=== PATIENT | female | born 1980 | race Hispanic/Latino ===

== ENCOUNTER 2023-07-27 15:01 | Inpatient (IN) | payer OTHER ==
[~2023-07-27 15:01] MED LIST: Iopamidol-370 76% 500 ML MDV (1 ML CHARGE) ONE
[2023-07-27] MEDS ORDERED: Cefepime 2 GM VIAL ONE (16:11)
[2023-07-27] MEDS ORDERED: Vancomycin 1 GM/200 ML (FROZEN) BAG ONE (16:44)
[2023-07-27] MEDS ORDERED: metroNIDAZOLE 500 MG/100 ML BAG ONE (16:44)
[2023-07-27 17:16] LABS: Hematocrit 25.4 % (36.0-47.0); Hemoglobin 9.6 g/dL (12.0-16.0); Manual Diff?? YES; Mean Corpuscular HGB CONC 37.8 g/dL (32.0-36.0); Mean Corpuscular Hemoglobin 31.3 pg (27.0-31.0); Mean Corpuscular Volume 82.7 fl (78.0-98.0); Mean Platelet Volume 9.5 fL (7.4-10.4); Platelet Count 160 10x3/uL (130-400); RBC Distribution Width 12.4 % (11.5-14.5); Red Blood Cell (RBC) Count 3.07 mill/uL (4.20-5.40); White Blood Cell (WBC) Count 1.6 10x3/uL (4.8-10.8)
[2023-07-27 17:17] LABS: Delete Auto Diff?? YES
[2023-07-27 17:29] LABS: Prothrombin Time 13.9 sec (12.0-14.7)
[2023-07-27 17:30] LABS: PTT 27.3 sec (22.9-36.1)
[2023-07-27 17:39] LABS: Anisocytosis SLIGHT = 6-15 cells HPF (0-5); Band 43 % (5-11); CellaVision Operator ID lab.dlt; Hypochromia SLIGHT = 6-15 cells HPF (0-5); Large Platelets 7.8 % (0-5); Lymphocytes 3 % (21-51); Monocytes 14 % (0-10); Neutrophil 41 % (42-75); Platelet Adequacy Comment Platelets Normal; Polychromasia SLIGHT = 2-3 cells HPF (0-2); Total Cell Count 116
[2023-07-27 17:42] LABS: Troponin I 0.035 ng/mL (< 0.028)
[2023-07-27 17:45] LABS: ALT (SGPT) 11 U/L (8-55); AST (SGOT) 11 U/L (5-34); Albumin 2.6 g/dL (3.5-5.0); Alkaline Phosphatase 63 U/L (40-110); Anion Gap 15 mmol/L (10-20); BUN (Urea Nitrogen) 23 mg/dL (7.0-18.7); CK (CPK) 44 U/L (29-168); Calc. Creatinine Clearance 0 mL/min (70-130); Carbon Dioxide 25 mmol/L (22-29); Chloride 81 mmol/L (98-107); Estimated GFR 114; Globulin 1.8 g/dL (2.4-3.5); Glucose 107 mg/dL (70-105); Protein, Total 4.4 g/dL (6.0-8.3)
[2023-07-27 17:48] LABS: Potassium 1.8 mmol/L (3.5-5.1); Sodium 119 mmol/L (136-145)
[2023-07-27] MEDS ORDERED: Potassium Chloride 20 MEQ TAB ONE (19:03)
[2023-07-27] MEDS ORDERED: Potassium Chloride 40 MEQ in Sodium Chloride 0.9% 250 ML 250 ML IVPB SCH (19:15)
[2023-07-27] MEDS ORDERED: Potassium Chloride 40 MEQ in Premix Bag 1 BAG IVPB SCH (19:30)
[2023-07-27] MEDS ORDERED: Albumin 25% 25 GM/100 ML BOT IVPB SCH (19:45)
[2023-07-27] MEDS ORDERED: NOREPINEPHRINE 8 MG/250 ML-D5W 250 ML ONE (20:00)
[2023-07-27 20:09] LABS: SARS-CoV-2 NAA Rapid Test Not Detected (NotDetected)
[2023-07-27 20:10] LABS: Bacteria/HPF None Seen HPF (None Seen); Bilirubin Negative (Negative); Blood, Urine Negative (Negative); CAUTI Indications for Culture Alt mental st,lethar; Clarity Clear (Clear); Glucose, Urine (Dipstick) Normal (Negative); Ketone, Urine Negative (Negative); Leukocyte Negative Leu/uL (Negative); Nitrite Negative (Negative); Protein, Urine (Dipstick) 20 mg/dL (Neg-Trace); RBC/HPF 0-3 HPF (0-3); Specific Gravity, Urine 1.029 (1.002-1.036); Squamous Epithelial 0-3 HPF (0-3); Urobilinogen Normal mg/dL (Less than 2); WBC/HPF 0-3 HPF (0-3); pH, Urine 6.5 (5.0-9.0)
[2023-07-27] MEDS ORDERED: Acetaminophen 325 MG TAB PO PRN (20:19)
[2023-07-27] MEDS ORDERED: Acetaminophen 650 MG Suppository PR PRN (20:19)
[2023-07-27 20:25] LABS: Urine Culture Reflex No No
[2023-07-27] MEDS ORDERED: Pharmacy to Dose : VANC/ABX'S IVPB PRN (20:25)
[2023-07-27] MEDS: NOREPINEPHRINE 8 MG/250 ML-D5W 250 ML IVPB SCH (20:32)
[2023-07-27] MEDS ORDERED: Cefepime 2 GM in Sodium Chloride 0.9% 100 ML IVPB SCH (21:00)
[2023-07-27] MEDS ORDERED: Vancomycin HCl 1.5 GM in Sodium Chloride 0.9% 250 ML 300 ML IVPB SCH (21:00)
[2023-07-27 21:09] LABS: Hematocrit 25.7 % (36.0-47.0); Hemoglobin 9.5 g/dL (12.0-16.0); Mean Corpuscular Hemoglobin 31.7 pg (27.0-31.0); Mean Platelet Volume 9.5 fL (7.4-10.4); Platelet Count 137 10x3/uL (130-400); RBC Distribution Width 12.7 % (11.5-14.5); White Blood Cell (WBC) Count 2.4 10x3/uL (4.8-10.8)
[2023-07-27 21:17] LABS: Delete Auto Diff?? YES; Manual Diff?? YES
[2023-07-27 21:29] LABS: Actual Bicarbonate (HCO3v) 22.7 mEq/L (22-28); Base Excess -0.9 mEq/L (-2.0 to +3.0); Chloride (VBG) 86 mmol/L (98-106); Hematocrit-VBG 31 % (36.0-47.0); Hemoglobin (Hb) 10.5 g/dL (11.7-15.5); pH (venous) 7.447 (7.32-7.43)
[2023-07-27 21:30] LABS: Anion Gap 17 mmol/L (10-20); BUN (Urea Nitrogen) 21 mg/dL (7.0-18.7); Calc. Creatinine Clearance 65 mL/min (70-130); Calcium 7.3 mg/dL (7.8-10.44); Carbon Dioxide 20 mmol/L (22-29); Chloride 85 mmol/L (98-107); Estimated GFR 114; Glucose 123 mg/dL (70-105); Magnesium 1.4 mg/dL (1.6-2.6); Sodium 120 mmol/L (136-145)
[2023-07-27] MEDS ORDERED: Dextrose 5% in Water 1,000 ML IV PRN (21:34)
[2023-07-27] MEDS ORDERED: Glucagon 1 MG/ML KIT IM PRN (21:34)
[2023-07-27] MEDS ORDERED: Dextrose 50% Abboject 50 ML SYRINGE SLOW IVP PRN (21:34)
[2023-07-27 21:35] LABS: Potassium 1.5 mmol/L (3.5-5.1)
[2023-07-27] MEDS ORDERED: Electrolyte Replacement Protocol 1 EACH FS SCH (21:35)
[2023-07-27] MEDS: Ondansetron PF 4 MG/2 ML Vial IVP PRN (21:41)
[2023-07-27 21:43] LABS: Lactic Acid 4.8 mmol/L (0.5-2.2)
[2023-07-27 21:55] LABS: Legionella Urinary Ag Negative (Negative); Strep pneumo Urine Ag NEGATIVE (NEGATIVE)
[2023-07-27 21:57] LABS: Anisocytosis SLIGHT = 6-15 cells HPF (0-5); Band 34 % (5-11); Burr Cells SLIGHT = 2-5 cells HPF (0-1); CellaVision Operator ID LAB.JMM; Large Platelets 3.7 % (0-5); Lymphocytes 6 % (21-51); Metamyelocyte 6 % (0-0); Monocytes 3 % (0-10); Myelocyte 1 % (0-0); Neutrophil 51 % (42-75); Platelet Adequacy Comment Platelets Normal; Polychromasia SLIGHT = 2-3 cells HPF (0-2); RBC Morphology 2; Total Cell Count 108; Toxic Granulation MODERATE
[2023-07-27 22:01] LABS: Mean Corpuscular Volume 85.7 fl (78.0-98.0)
[2023-07-27] MEDS: Vasopressin 20 UNITS in Sodium Chloride 0.9% 50 ML IV SCH (22:28)
[2023-07-27] MEDS: Meropenem 1 GM in Sodium Chloride 0.9% 100 ML IVPB SCH (22:28)
[2023-07-27] MEDS ORDERED: Sodium Chloride 0.9% 1,000 ML IV SCH (22:30)
[2023-07-27] MEDS ORDERED: Potassium Chloride 20 MEQ in Premix Bag 1 BAG IVPB SCH (22:30)
[2023-07-27] MEDS ORDERED: Magnesium Sulfate In Water 4 GM in Premix Bag 1 BAG IVPB SCH (22:30)
[2023-07-27] MEDS: Hydrocortisone Sod Succ/PF 100 mg/2 ml Vial IVP SCH (22:48)
[2023-07-27 23:29] VITALS: BP 96/66
[2023-07-27 23:41] LABS: Anion Gap 15 mmol/L (10-20); BUN (Urea Nitrogen) 20 mg/dL (7.0-18.7); Calc. Creatinine Clearance 67 mL/min (70-130); Calcium 7.5 mg/dL (7.8-10.44); Carbon Dioxide 23 mmol/L (22-29); Chloride 86 mmol/L (98-107); Estimated GFR 115; Glucose 125 mg/dL (70-105); Lactic Acid 4.2 mmol/L (0.5-2.2); Sodium 122 mmol/L (136-145)
[2023-07-27 23:47] LABS: Troponin I 0.036 ng/mL (< 0.028)
[2023-07-27 23:48] LABS: Potassium 1.9 mmol/L (3.5-5.1)
[2023-07-28] MEDS: NOREPINEPHRINE 8 MG/250 ML-D5W 250 ML IVPB SCH ×3 (01:41→11:11)
[2023-07-28] MEDS: Potassium Chloride 20 MEQ in Premix Bag 1 BAG IVPB SCH ×4 (01:44→06:36)
[2023-07-28 04:52] LABS: Hematocrit 23.9 % (36.0-47.0); Hemoglobin 8.4 g/dL (12.0-16.0); Mean Corpuscular HGB CONC 35.1 g/dL (32.0-36.0); Mean Corpuscular Hemoglobin 31.1 pg (27.0-31.0); Mean Platelet Volume 9.9 fL (7.4-10.4); Platelet Count 121 10x3/uL (130-400); RBC Distribution Width 12.5 % (11.5-14.5); White Blood Cell (WBC) Count 3.3 10x3/uL (4.8-10.8)
[2023-07-28] MEDS ORDERED: Vancomycin HCl 500 MG in Sodium Chloride 0.9% 100 ML IVPB SCH (05:00)
[2023-07-28 05:05] LABS: Delete Auto Diff?? YES; Manual Diff?? YES
[2023-07-28 05:20] LABS: Anion Gap 13 mmol/L (10-20); BUN (Urea Nitrogen) 17 mg/dL (7.0-18.7); Calc. Creatinine Clearance 83 mL/min (70-130); Calcium 7.4 mg/dL (7.8-10.44); Carbon Dioxide 24 mmol/L (22-29); Chloride 88 mmol/L (98-107); Estimated GFR 117; Glucose 146 mg/dL (70-105); Magnesium 3.1 mg/dL (1.6-2.6); Sodium 123 mmol/L (136-145)
[2023-07-28] MEDS: Meropenem 1 GM in Sodium Chloride 0.9% 100 ML IVPB SCH (05:25)
[2023-07-28] MEDS: Albumin 25% 25 GM/100 ML BOT IVPB SCH ×2 (05:25→11:12)
[2023-07-28] MEDS: Hydrocortisone Sod Succ/PF 100 mg/2 ml Vial IVP SCH (05:26)
[2023-07-28] MEDS: Vasopressin 20 UNITS in Sodium Chloride 0.9% 50 ML IV SCH ×2 (05:27→09:40)
[2023-07-28 05:29] LABS: Lactic Acid 4.2 mmol/L (0.5-2.2); Phosphorus 1.4 mg/dL (2.3-4.7); Potassium 2.3 mmol/L (3.5-5.1)
[2023-07-28 05:35] LABS: Mean Corpuscular Volume 88.5 fl (78.0-98.0)
[2023-07-28] MEDS: Ondansetron PF 4 MG/2 ML Vial IVP PRN (05:59)
[2023-07-28] MEDS ORDERED: Potassium Phosphate 22 MMOL in Sodium Chloride 0.9% 250 ML 250 ML IVPB SCH (06:15)
[2023-07-28 08:14] VITALS: BMI 15.3
[2023-07-28 08:17] LABS: Anion Gap 15 mmol/L (10-20); BUN (Urea Nitrogen) 15 mg/dL (7.0-18.7); Calc. Creatinine Clearance 89 mL/min (70-130); Calcium 7.4 mg/dL (7.8-10.44); Carbon Dioxide 23 mmol/L (22-29); Chloride 91 mmol/L (98-107); Estimated GFR 119; Glucose 149 mg/dL (70-105); Potassium 4.6 mmol/L (3.5-5.1); Sodium 124 mmol/L (136-145)
[2023-07-28 08:26] LABS: Lactic Acid 4.4 mmol/L (0.5-2.2)
[2023-07-28] MEDS ORDERED: Potassium Chloride 20 MEQ in Premix Bag 1 BAG IVPB SCH ×2 (09:00)
[2023-07-28] MEDS ORDERED: Pantoprazole 40 MG VIAL IVP SCH (09:00)
[2023-07-28] MEDS ORDERED: Magnesium Sulfate In Water 4 GM in Premix Bag 1 BAG IVPB SCH (09:15)
[2023-07-28] MEDS ORDERED: Magnesium Sulfate 4 GM in Sodium Chloride 0.9% 250 ML 250 ML IVPB SCH (09:15)
[2023-07-28] MEDS ORDERED: Aluminum & Magnesium Hydroxide 60 ML, Lidocaine 2% Viscous Solution 30 ML, diphenhydrAM... SSW PRN (09:55)
[2023-07-28 10:15] VITALS: TEMP 98.1
[2023-07-28] MEDS ORDERED: Ketorolac Tromethamine 30 MG/ML VIAL IVP SCH (10:40)
[2023-07-28] MEDS ORDERED: Morphine 4 MG/ML VIAL SLOW IVP PRN (14:25)
[2023-07-28] MEDS ORDERED: Lorazepam 2 MG/ML VIAL SLOW IVP PRN (14:27)
[2023-07-28] MEDS ORDERED: Morphine 4 MG/ML VIAL ONE (14:27)
[2023-07-28] MEDS ORDERED: Lorazepam 2 MG/ML VIAL ONE (14:27)
== END 2023-07-28 14:31 | disposition hospice, inpatient (51) | DRG 871 ==
LOC: ERS 15:01 → CCU 18:20
PROVIDERS: ADMIT Hospitalist; ATTEND Internal Medicine
PROC: 06HY33Z Insertion of Infusion Device into Lower Vein, Percutaneous Approach (ICD-10-PCS; principal; 2023-07-27)
PROC: 30233J1 Transfusion of Nonautologous Serum Albumin into Peripheral Vein, Percutaneous Approach (ICD-10-PCS; 2023-07-27)
PROC: 3E033XZ Introduction of Vasopressor into Peripheral Vein, Percutaneous Approach (ICD-10-PCS; 2023-07-27)
PROC: 3E03329 Introduction of Other Anti-infective into Peripheral Vein, Percutaneous Approach (ICD-10-PCS; 2023-07-27)
DX: A41.9 Sepsis, unspecified organism (principal); E43 Unspecified severe protein-calorie malnutrition; I26.99 Other pulmonary embolism without acute cor pulmonale; R65.21 Severe sepsis with septic shock; R57.1 Hypovolemic shock; J69.0 Pneumonitis due to inhalation of food and vomit; E87.1 Hypo-osmolality and hyponatremia; R64 Cachexia; Z68.1 Body mass index [BMI] 19.9 or less, adult; J90 Pleural effusion, not elsewhere classified; K55.9 Vascular disorder of intestine, unspecified; N13.30 Unspecified hydronephrosis; R18.8 Other ascites; N12 Tubulo-interstitial nephritis, not specified as acute or chronic; I95.9 Hypotension, unspecified; E87.6 Hypokalemia; E86.1 Hypovolemia; E86.0 Dehydration; D64.9 Anemia, unspecified; Z20.822 Contact with and (suspected) exposure to COVID-19
CPT/HCPCS: 36416; 71045; 71260; 71275; 74177; 80048; 80053; 81001; 82533; 82550; 82805; 83605; 83735; 83930; 83935; 84100; 84145; 84300; 84443; 84484; 85025; 85610; 85730; 86850; 86900; 86901; 87040; 87086; 87449; 87899; 93005; 93010; 93970; C9113; J0692; J1650; J1720; J1885; J2185; J2270; J2405; J3370; J3370-JW; J3475; J3480; J3490; J7050; P9047; Q9967; U0002

== ENCOUNTER 2023-07-28 14:41 | Inpatient (IN) | payer OTHER ==
[2023-07-28] MEDS ORDERED: GLYCOPYRROLATE/PF 0.2 MG/ML VIAL SLOW IVP PRN (15:12)
[2023-07-28] MEDS ORDERED: Metoclopramide HCl 10 MG/2 ML VIAL IVP PRN (15:13)
[2023-07-28] MEDS ORDERED: Ondansetron PF 4 MG/2 ML Vial IVP PRN (15:13)
[2023-07-28] MEDS ORDERED: Bisacodyl 10 MG SUPP PR PRN (15:14)
[2023-07-28] MEDS ORDERED: Acetaminophen 650 MG Suppository PR PRN (15:15)
[2023-07-28] MEDS ORDERED: Haloperidol Lactate 5 MG/ML VIAL SLOW IVP PRN (15:15)
[2023-07-28] MEDS ORDERED: Acetaminophen 325 MG TAB PO PRN (15:15)
[2023-07-28] MEDS ORDERED: Scopolamine 1.5 mg/72 hour Patch TOP PRN (15:15)
[2023-07-28] MEDS: Lorazepam 2 MG/ML VIAL SLOW IVP PRN ×2 (15:43→19:26)
[2023-07-28] MEDS: Morphine 4 MG/ML VIAL SLOW IVP PRN ×3 (16:50→22:56)
[2023-07-28 18:22] VITALS: BMI 15.3
[2023-07-29] MEDS: Morphine 4 MG/ML VIAL SLOW IVP PRN ×3 (03:44→13:22)
[2023-07-29] MEDS ORDERED: Pantoprazole 40 MG VIAL IVP SCH (09:00)
[2023-07-29 12:35] VITALS: TEMP 97.9
== END 2023-07-29 15:50 | disposition hospice, inpatient (51) | DRG 951 ==
LOC: CCU 14:41 → T4-A 07-29 13:57
PROVIDERS: ADMIT Family Medicine; ATTEND Family Medicine
DX: Z51.5 Encounter for palliative care (principal); I26.99 Other pulmonary embolism without acute cor pulmonale; J18.9 Pneumonia, unspecified organism; A41.9 Sepsis, unspecified organism; C16.9 Malignant neoplasm of stomach, unspecified; R64 Cachexia; Z68.1 Body mass index [BMI] 19.9 or less, adult; J90 Pleural effusion, not elsewhere classified; D64.9 Anemia, unspecified; E88.09 Other disorders of plasma-protein metabolism, not elsewhere classified; R11.0 Nausea
CPT/HCPCS: 93005; C9113; J2060; J2270

== ENCOUNTER 2023-07-29 16:27 | Inpatient (IN) | payer OTHER ==
[2023-07-29] MEDS ORDERED: Acetaminophen 325 MG TAB PO PRN (17:08)
[2023-07-29] MEDS ORDERED: Acetaminophen 650 MG Suppository PR PRN (17:09)
[2023-07-29] MEDS ORDERED: Ondansetron PF 4 MG/2 ML Vial IVP PRN (17:10)
[2023-07-29] MEDS ORDERED: Metoclopramide HCl 10 MG/2 ML VIAL IVP PRN (17:10)
[2023-07-29] MEDS ORDERED: Bisacodyl 10 MG SUPP PR PRN (17:10)
[2023-07-29] MEDS: Morphine 4 MG/ML VIAL SLOW IVP PRN ×2 (18:40→19:58)
[2023-07-30] MEDS: Lorazepam 2 MG/ML VIAL SLOW IVP PRN ×6 (00:04→22:29)
[2023-07-30] MEDS: Morphine 4 MG/ML VIAL SLOW IVP PRN ×12 (04:23→23:19)
[2023-07-30] MEDS: Pantoprazole 40 MG VIAL IVP SCH (08:40)
[2023-07-30] MEDS: Haloperidol Lactate 5 MG/ML VIAL SLOW IVP PRN ×2 (11:50→19:09)
[2023-07-30] MEDS: Scopolamine 1.5 mg/72 hour Patch TOP PRN ×2 (14:23→23:19)
[2023-07-30] MEDS: GLYCOPYRROLATE/PF 0.2 MG/ML VIAL SLOW IVP PRN (23:29)
[2023-07-31] MEDS: Morphine 4 MG/ML VIAL SLOW IVP PRN ×6 (00:21→05:44)
[2023-07-31 00:35] VITALS: BP 109/73; TEMP 100
[2023-07-31] MEDS: Haloperidol Lactate 5 MG/ML VIAL SLOW IVP PRN (01:18)
[2023-07-31] MEDS: Lorazepam 2 MG/ML VIAL SLOW IVP PRN ×2 (02:30→06:30)
[2023-07-31] MEDS: GLYCOPYRROLATE/PF 0.2 MG/ML VIAL SLOW IVP PRN (06:30)
[2023-07-31] MEDS: Pantoprazole 40 MG VIAL IVP SCH (09:32)
== END 2023-07-31 07:41 | disposition expired | DRG 951 ==
LOC: T4-A 16:27
PROVIDERS: ADMIT Family Medicine; ATTEND Family Medicine
DX: Z51.5 Encounter for palliative care (principal); A41.9 Sepsis, unspecified organism; J18.9 Pneumonia, unspecified organism; C16.9 Malignant neoplasm of stomach, unspecified; R64 Cachexia; J91.0 Malignant pleural effusion; D64.9 Anemia, unspecified; E88.09 Other disorders of plasma-protein metabolism, not elsewhere classified; R45.1 Restlessness and agitation; F41.9 Anxiety disorder, unspecified
CPT/HCPCS: C9113; J1630; J2060; J2270; J3490